=== PATIENT | female | born 1965 | race Caucasian/White ===

== ENCOUNTER → 2018-03-04 | Outpatient (CLI) | payer OTHER | END | disposition home or self-care (01) | LOC: RAH 09:03 | PROVIDERS: ATTEND Obstetrics & Gynecology | DX: Z12.31 Encounter for screening mammogram for malignant neoplasm of breast (principal) | CPT/HCPCS: 77067 ==

== ENCOUNTER → 2024-12-16 | Outpatient (CLI) | payer BC ==
[~2024-12-16] MED LIST: IOHEXOL-350 75 ML VIAL IV ONE
--- NOTE | 2024-12-17 08:23 | HMCIMG ---
EXAM CT Abdomen and Pelvis with IV contrast CLINICAL HISTORY Patient presents with upper abdominal pain. TECHNIQUE Axial computed tomography images of the abdomen and pelvis were obtained with intravenous contrast. COMPARISON None provided. FINDINGS LUNG BASES Clear lung bases. Moderate pericardial effusion. LIVER Mild hepatomegaly; right hepatic lobe measures up to 18.4 cm in craniocaudal dimension. Hepatic steatosis. Passive congestion of the liver. No focal hepatic lesions. GALLBLADDER AND BILE DUCTS Normal gallbladder morphology without radioopaque gallstones. No biliary ductal dilatation. PANCREAS Normal. SPLEEN Normal. ADRENAL GLANDS Normal. KIDNEYS, URETERS, AND BLADDER Normal kidneys. No focal renal lesions. No hydronephrosis or urinary calculi. STOMACH AND BOWEL Component of mild constipation. No bowel obstruction, enteritis, or colitis. APPENDIX Normal appendix. PERITONEUM Trace free fluid in the pouch of Arturo. No free air. LYMPH NODES No abdominal or pelvic lymphadenopathy. REPRODUCTIVE Unremarkable as visualized. VASCULATURE No abdominal aortic aneurysm. BONES No aggressive osseous lesion or acute fracture. IMPRESSION Moderate pericardial effusion. Mild hepatomegaly with diffuse steatosis and passive congestion of the liver. No bowel obstruction or inflammation. Constipation. Normal kidneys. No hydronephrosis. Trace free fluid in the pouch of Arturo. /[place]
== END | disposition home or self-care (01) ==
LOC: RAH 07:34
PROVIDERS: ATTEND Internal Medicine Gastroenterology
DX: K76.0 Fatty (change of) liver, not elsewhere classified (principal); K76.1 Chronic passive congestion of liver; K59.00 Constipation, unspecified; K82.9 Disease of gallbladder, unspecified; I31.39 Other pericardial effusion (noninflammatory); R16.0 Hepatomegaly, not elsewhere classified; R63.4 Abnormal weight loss; R10.10 Upper abdominal pain, unspecified
CPT/HCPCS: 74177; Q9967